=== PATIENT | male | born 1995 | race Caucasian/White ===

== ENCOUNTER 2017-01-16 15:30 | Emergency (ER) | payer OTHER ==
--- NOTE | ~2017-01-16 | CR210 ---
[facility]. [facility] A Service of [facility] RADIOLOGY TEXT RESULTS PATIENT: MARIE HART LOCATION: SED : [birth year] UNIT #: [id number] AGE: [address]: STEPHANIE PERLA SEX: M ORDER DR: [id number] [place] [id number] E MR#: [id number] #: [id number] NAME: MARIE HART. : 1995 SEX: M STUDY DATE/TIME: 01/16/2017 16:19 UNIT: SED ROOM: STUDY DESCRIPTION: CR Ribs Uni 2 View W PA Ch Lt Attending Physician: (Sonia) Stephanie Perla Ordering Physician: (Sonia) Stephanie Perla Primary Care Physician: No Primary Care Physician MEDICAL IMAGING REPORT This report is preliminary unless electronic signature is present. EXAM Left ribs. HISTORY Anterior left rib pain for the past 4 days after being injured, carrying a piano and falling. TECHNIQUE Three views of the ribs were obtained and compared with the chest x-ray from 04/29/2009 FINDINGS A chest x-ray obtained as part of the rib series shows both lungs to be fully expanded clear. No displaced rib fractures or destructive bone lesions are seen. No pleural thickening is noted. IMPRESSION Negative rib series. Dictated by... Jimmie Hernandez M.D. THIS IS AN ELECTRONICALLY VERIFIED REPORT Jimmie Hernandez M.D. at 01/17/2017 6:47 AM RICHARDSON/ruby TD: 01/16/2017 21:26 JOB #: [id number] MEDICAL IMAGING REPORT Page 1 of 1
[~2017-01-16 15:30] MED LIST: ALBUTEROL17 GM INH; CLARITIN10 MG PO; FLEXERIL10 MG PO; FLOVENT HFA12 GM INH; IBUPROFEN100 MG PO; LORTAB 5/500 TA1 TA1 PO; NO MEDICATIONS; SINGULAIR PO; TYLENOL #3 PO; VEETIDS 500500 M1 PO; VICODIN 5/500 T1 TAB PO; VOLTAREN75 MG PO
== END 2017-01-16 17:10 | disposition home or self-care (01) ==
LOC: SED 15:30
DX: R07.89 Other chest pain (principal); Y04.0XXA Assault by unarmed brawl or fight, initial encounter; Y92.410 Unspecified street and highway as the place of occurrence of the external cause
CPT/HCPCS: 71100; 99283